=== PATIENT | male | born 1980 | race Caucasian/White ===

== ENCOUNTER 2020-07-06 20:38 | Emergency (ER) | payer BC ==
[2020-07-06 20:45] VITALS: BP 163/90; PULSE 100; RESP 20; TEMP 98.6
--- NOTE | 2020-07-06 21:07 | ED ---
General Adult HPI - General Chief complaint: Head Injury Stated complaint: Fall,Head Injury Time Seen by Provider: 07/06/20 20:48 Source: patient, family Mode of arrival: ambulatory Limitations: no limitations - History of Present Illness Initial comments: 39-year-old male patient presents to the emergency department today for evaluation after sustaining a head injury. He states approximately 4 hours ago was coming down the stairs when he lost his balance and fell hitting his head onto steps. He denies any loss of consciousness with this. His father states he was initially groggy but that did clear up. Patient denies any current headache, blurred vision, double vision, nausea, vomiting. Denies any neck or back pain. Denies numbness or tingling to his extremities. States that he overall feels well however his family encouraged him to come in due to history of concussion. He denies taking any medication for his symptoms were denies any use of anticoagulants or antiplatelet medications. Patient denies any chest pain, shortness of breath, dizziness, weakness, abdominal pain, nausea, vomiting, or difficulties with bowel movements or urination. - Related Data Allergies Allergy/AdvReac Type Severity Reaction Status Date / Time No Known Allergies Allergy Verified 07/06/20 20:45 Review of Systems ROS Statement: Those systems with pertinent positive or pertinent negative responses have been documented in the HPI. ROS Other: All systems not noted in ROS Statement are negative. Past Medical History Additional Past Medical History / Comment(s): concussions History of Any Multi-Drug Resistant Organisms: None Reported Past Surgical History: Ear Surgery, Orthopedic Surgery Past Psychological History: No Psychological Hx Reported Smoking Status: Current every day smoker Past Alcohol Use History: Occasional Past Drug Use History: None Reported General Exam Limitations: no limitations General appearance: alert, in no apparent distress, other (This is a well-de veloped, well-nourished adult male patient in no acute distress. Vital signs upon presentation are temperature 98.6F, pulse 100, respirations 20, blood pressure 163/90, pulse ox 97% on room air.) Head exam: Present: atraumatic, normocephalic, normal inspection, other (No scalp tenderness) Eye exam: Present: normal appearance, PERRL, EOMI. Absent: scleral icterus, conjunctival injection, periorbital swelling ENT exam: Present: normal exam, normal oropharynx, mucous membranes moist, TM's normal bilaterally (No evidence for hemotympanum) Neck exam: Present: normal inspection, full ROM, other (Nontender, no step-off, no deformity to firm midline palpation of the posterior cervical spine. Full range of motion without pain or limitation.). Absent: tenderness, meningismus, lymphadenopathy Respiratory exam: Present: normal lung sounds bilaterally. Absent: respiratory distress, wheezes, rales, rhonchi, stridor Cardiovascular Exam: Present: regular rate, normal rhythm, normal heart sounds. Absent: systolic murmur, diastolic murmur, rubs, gallop, clicks GI/Abdominal exam: Present: soft, normal bowel sounds. Absent: distended, tenderness, guarding, rebound, rigid Extremities exam: Present: normal inspection, full ROM, normal capillary refill. Absent: tenderness, pedal edema, joint swelling, calf tenderness Back exam: Present: normal inspection, other (Nontender, no step-off, no deformity to firm midline palpation of the thoracic and lumbar vertebrae. Full range of motion without pain or limitation.). Absent: vertebral tenderness Neurological exam: Present: alert, oriented X3, CN II-XII intact Expanded Speech: Present: fluid speech Motor strength exam: RUE: 5, LUE: 5, RLE: 5, LLE: 5 Eye Response: (4) open spontaneously Motor Response: (6) obeys commands Verbal Response: (5) oriented [place] Total: 15 Psychiatric exam: Present: normal affect, normal mood Skin exam: Present: warm, dry, intact, normal color. Absent: rash Course Vital Signs 07/06/20 20:40 Temperature 98.6 F Pulse Rate 100 Respiratory 20 Rate Blood Pressure 163/90 O2 Sat by Pulse 97 Oximetry Medical Decision Making - Medical Decision Making 39-year-old male patient presents to the emergency department today for evaluation of head injury. Physical examination is unremarkable. He is neurologically intact with no focal deficits. There is no surface trauma noted to the scalp. Father states that patient is at his baseline. We did discuss signs or symptoms of worsening head injury. He is comfortable not getting a CAT scan at this time. We discharged him up with his primary care physician for recheck in 1-2 days. Return parameters were discussed in detail. He verbalizes understanding and agrees with this plan. Disposition Clinical Impression: Head injury Disposition: HOME SELF-CARE Condition: Good Instructions (If sedation given, give patient instructions): Head Injury (ED) Additional Instructions: Monitor for signs or symptoms of worsening head injury including but not limited to headache, vomiting, dizziness, weakness, or confusion. Follow-up with your primary care physician for recheck in 1-2 days. Return to the emergency department immediately for any new, worsening, or concerning symptoms. Is patient prescribed a controlled substance at d/c from ED?: No Referrals: Radha Yi MD [Primary Care Provider] - 1-2 days Time of Disposition: 21:07
== END 2020-07-06 21:17 | disposition home or self-care (01) ==
LOC: EC 20:38
DX: S09.90XA Unspecified injury of head, initial encounter (principal); F17.200 Nicotine dependence, unspecified, uncomplicated; W10.9XXA Fall (on) (from) unspecified stairs and steps, initial encounter; Y92.009 Unspecified place in unspecified non-institutional (private) residence as the place of occurrence of the external cause
CPT/HCPCS: 99283